=== PATIENT | female | born 1995 | race Caucasian/White ===

== ENCOUNTER 2017-01-29 17:53 | Observation (INO) | payer BC ==
[~2017-01-29] VITALS: Ht 154.9 cm; Wt 60.0 kg
[~2017-01-29 17:53] MED LIST: PREN1TAB62 PO
[2017-01-29 18:29] VITALS: BP 118/65
[2017-01-29 18:38] LABS: AMNI OBC PASS; AMNISURE NEGATIVE (NEGATIVE)
[2017-01-29 19:43] LABS: DAU SCREEN DISCLAIMER
[2017-01-29] MEDS ORDERED: NITROFURANTOIN (MACROBID) 100 MG CAPSULE PO ONE (22:00)
[2017-01-29] MEDS ORDERED: NITROFURANTOIN (MACROBID) 100 MG CAPSULE ONE (22:23)
[2017-01-29] MEDS ORDERED: NITR100C56 PO (23:23)
== END 2017-01-29 23:30 | disposition home or self-care (01) ==
LOC: LDOP 17:53 → LDIP 21:24
PROVIDERS: ADMIT Obstetrics & Gynecology; ATTEND Obstetrics & Gynecology
DX: O42.913 Preterm premature rupture of membranes, unspecified as to length of time between rupture and onset of labor, third trimester (principal); Z3A.33 33 weeks gestation of pregnancy
CPT/HCPCS: 36415; 59025; 76819; 80307; 81001; 84112; 84443; 85025; G0378; 99211; G0463

== ENCOUNTER 2017-02-19 21:59 | Outpatient (CLI) | payer BC ==
[~2017-02-19] VITALS: Ht 157.5 cm; Wt 61.8 kg
[~2017-02-19 21:59] MED LIST changes: +NITR100C56 PO
[2017-02-19] MEDS ORDERED: OXYTOCIN 30U/ 0.9% NaCL 500ML 500 ML IV PRN (23:52)
[2017-02-19] MEDS ORDERED: D5%-LACTATED RINGERS 1,000 ML IV SCH (23:52)
[2017-02-19] MEDS ORDERED: OXYTOCIN 30U/ 0.9% NaCL 500ML 500 ML IV ONE (23:52)
[2017-02-19] MEDS ORDERED: LACTATED RINGERS 1,000 ML IV SCH (23:52)
[2017-02-20] MEDS ORDERED: FENTANYL PF 100 MCG/2ML IV PRN
[2017-02-20] MEDS ORDERED: ONDANSETRON 2MG/ML, 2ML IVPush PRN
[2017-02-20] MEDS ORDERED: CALCIUM CARBONATE 500 MG TAB.CHEW PO PRN
[2017-02-20] MEDS ORDERED: MISOPROSTOL 25 MCG TABLET VG PRN
[2017-02-20] MEDS ORDERED: TERBUTALINE 1 MG/ML, 1ML IVPush PRN
[2017-02-20] MEDS ORDERED: FENTANYL PF 100 MCG/2ML IVPush PRN
== END 2017-02-19 23:25 | disposition home or self-care (01) ==
LOC: LDOP 21:59
PROVIDERS: ATTEND Obstetrics & Gynecology
DX: O42.913 Preterm premature rupture of membranes, unspecified as to length of time between rupture and onset of labor, third trimester (principal); Z3A.36 36 weeks gestation of pregnancy
CPT/HCPCS: 59025; 86850; 86900; 89060; 99211; G0463; Q0114

== ENCOUNTER 2017-02-27 20:33 | Observation (INO) | payer BC ==
[~2017-02-27] VITALS: Ht 157.5 cm; Wt 66.0 kg
[2017-02-27 21:15] LABS: AMNI OBC PASS; AMNISURE NEGATIVE (NEGATIVE)
[2017-02-27] MEDS ORDERED: DIPHENHYDRAMINE 25 MG CAPSULE ONE (22:56)
[2017-02-27] MEDS ORDERED: DIPHENHYDRAMINE 25 MG CAPSULE PO PRN (23:00)
== END 2017-02-28 00:55 | disposition home or self-care (01) ==
LOC: LDOP 20:33 → LDIP 22:54
PROVIDERS: ADMIT Obstetrics & Gynecology; ATTEND Obstetrics & Gynecology
DX: O42.92 Full-term premature rupture of membranes, unspecified as to length of time between rupture and onset of labor (principal); O62.9 Abnormality of forces of labor, unspecified; O26.893 Other specified pregnancy related conditions, third trimester; L29.9 Pruritus, unspecified; Z3A.37 37 weeks gestation of pregnancy
CPT/HCPCS: 36415; 59025; 76815; 80076; 82239; 84112; G0378; Q0163; 99211; G0463

== ENCOUNTER 2019-07-11 21:34 | Inpatient (IN) | payer BC ==
[~2019-07-11] VITALS: Ht 157.5 cm; Wt 62.3 kg
[~2019-07-11 21:34] MED LIST changes: +DOCU-131 PO; +IBUP-1223 PO
[2019-07-11] MEDS ORDERED: OXYTOCIN 30U/ 0.9% NaCL 500ML 500 ML IV ONE (21:36)
[2019-07-11] MEDS ORDERED: D5%-LACTATED RINGERS 1,000 ML IV SCH (21:36)
[2019-07-11 21:57] LABS: BASOPHILS # (AUTO) 0.04 x10^3/uL (0-0.1); BASOPHILS % (AUTO) 0 % (0-1); EOSINOPHILS # (AUTO) 0.16 x10^3/uL (0-0.4); EOSINOPHILS % (AUTO) 2 % (1-7); LYMPHOCYTES % (AUTO) 18 % (22-44); MD NO; MEAN CORPUSCULAR HEMOGLOBIN 33.7 pg (27.0-34.8); MEAN CORPUSCULAR HGB CONC 33.4 g/dL (32.4-35.8); MEAN CORPUSCULAR VOLUME 100.8 fL (80-100); MEAN PLATELET VOLUME 7.9 fL (7.4-10.4); MONOCYTES # (AUTO) 0.68 x10^3/uL (0.2-0.8); MONOCYTES % (AUTO) 7 % (2-9); NEUTROPHILS # (AUTO) 7.75 x10^3/uL (1.8-6.8); NEUTROPHILS % (AUTO) 74 % (42-75); PLATELET COUNT 268 x10^3/uL (130-400); RED BLOOD COUNT 3.77 x10^6/uL (3.82-5.3); RED CELL DISTRIBUTION WIDTH 13.1 % (9.6-15.2)
[2019-07-11] MEDS ORDERED: TERBUTALINE 1 MG/ML, 1ML IVPush PRN (22:00)
[2019-07-11] MEDS ORDERED: FENTANYL PF 100 MCG/2ML IV PRN (22:00)
[2019-07-11] MEDS ORDERED: FENTANYL PF 100 MCG/2ML IVPush PRN (22:00)
[2019-07-11] MEDS ORDERED: ONDANSETRON 2MG/ML, 2ML IVPush PRN (22:00)
[2019-07-11] MEDS ORDERED: TERBUTALINE 1 MG/ML, 1ML SQ PRN (22:00)
[2019-07-11] MEDS ORDERED: OXYTOCIN 30U/ 0.9% NaCL 500ML 500 ML ONE (22:09)
[2019-07-11] MEDS ORDERED: LIDOCAINE 1%, 20ML ONE (22:09)
[2019-07-11] MEDS ORDERED: MISOPROSTOL 200 MCG TABLET ONE (22:09)
[2019-07-11] MEDS ORDERED: NEWBORN KIT ONE (22:09)
[2019-07-11] MEDS ORDERED: FENTANYL PF 100 MCG/2ML ONE ×2 (22:24→23:21)
[2019-07-11] MEDS ORDERED: SIMETHICONE 80 MG CHEW TAB PO PRN (22:30)
[2019-07-11] MEDS ORDERED: OXYcodone/APAP 5/325MG TABLET PO PRN (22:30)
[2019-07-11] MEDS ORDERED: DIPH,PERTUSS(ACELL),TET VAC/PF NC IM-VACC PRN (22:30)
[2019-07-11] MEDS ORDERED: METOCLOPRAMIDE 5 MG/ML, 2ML IV PRN (22:30)
[2019-07-11] MEDS ORDERED: BISACODYL 10 MG SUPP PR PRN (22:30)
[2019-07-11] MEDS ORDERED: MAGNESIUM HYDROXIDE 8%, 30ML UDC PO PRN (22:30)
[2019-07-11] MEDS ORDERED: ONDANSETRON 2MG/ML, 2ML IV PRN (22:30)
[2019-07-11] MEDS ORDERED: MISOPROSTOL 200 MCG TABLET PR PRN (22:30)
[2019-07-11] MEDS ORDERED: DOCUSATE 100 MG CAPSULE PO PRN (22:30)
[2019-07-11] MEDS ORDERED: ACETAMINOPHEN 325 MG TABLET PO PRN ×2 (22:30)
[2019-07-12] MEDS: LACTATED RINGERS 1,000 ML IV SCH ×2 (00:09→00:10)
[2019-07-12] MEDS ORDERED: IBUPROFEN 600 MG TABLET ONE (00:43)
[2019-07-12] MEDS: IBUPROFEN 600 MG TABLET PO PRN ×3 (00:45→17:46)
[2019-07-12] MEDS ORDERED: OXYTOCIN 30U/ 0.9% NaCL 500ML 500 ML ONE (01:39)
[2019-07-12] MEDS: OXYTOCIN 30U/ 0.9% NaCL 500ML 500 ML IV SCH ×3 (01:41→18:14)
[2019-07-12 02:45] VITALS: BP 99/58
[2019-07-12] MEDS: OXYcodone/APAP 5/325MG TABLET PO PRN ×2 (03:41→17:47)
[2019-07-12 07:40] VITALS: BP 94/59
[2019-07-12] MEDS ORDERED: PRENATAL VIT/IRON/FA 1 EACH TABLET PO SCH (09:00)
[2019-07-12 09:06] LABS: BASOPHILS # (AUTO) 0.05 x10^3/uL (0-0.1); BASOPHILS % (AUTO) 0 % (0-1); EOSINOPHILS # (AUTO) 0.19 x10^3/uL (0-0.4); EOSINOPHILS % (AUTO) 1 % (1-7); LYMPHOCYTES # (AUTO) 1.71 x10^3/uL (1-3.4); LYMPHOCYTES % (AUTO) 12 % (22-44); MD SCAN; MEAN CORPUSCULAR HEMOGLOBIN 33.8 pg (27.0-34.8); MEAN CORPUSCULAR HGB CONC 33.4 g/dL (32.4-35.8); MEAN CORPUSCULAR VOLUME 101.1 fL (80-100); MEAN PLATELET VOLUME 7.9 fL (7.4-10.4); MONOCYTES # (AUTO) 0.91 x10^3/uL (0.2-0.8); MONOCYTES % (AUTO) 7 % (2-9); NEUTROPHILS # (AUTO) 11.23 x10^3/uL (1.8-6.8); NEUTROPHILS % (AUTO) 80 % (42-75); PLATELET COUNT 247 x10^3/uL (130-400); RED BLOOD COUNT 3.82 x10^6/uL (3.82-5.3); RED CELL DISTRIBUTION WIDTH 12.9 % (9.6-15.2)
[2019-07-12 12:51] VITALS: BP 101/65
[2019-07-12 20:00] VITALS: BP 116/80
[2019-07-13] MEDS: OXYTOCIN 30U/ 0.9% NaCL 500ML 500 ML IV SCH (04:14)
[2019-07-13 08:50] VITALS: BP 93/59
== END 2019-07-13 12:40 | disposition home or self-care (01) | DRG 807 ==
LOC: LDOP 21:34 → LDIP 21:41 → 2NW 07-12 02:37
PROVIDERS: ADMIT Obstetrics & Gynecology; ATTEND Obstetrics & Gynecology
PROC: 10E0XZZ Delivery of Products of Conception, External Approach (ICD-10-PCS; principal; 2019-07-12)
PROC: 10907ZC Drainage of Amniotic Fluid, Therapeutic from Products of Conception, Via Natural or Artificial Opening (ICD-10-PCS; 2019-07-12)
DX: O80 Encounter for full-term uncomplicated delivery (principal); Z37.0 Single live birth; Z3A.38 38 weeks gestation of pregnancy
CPT/HCPCS: 36415; 85025; 86850; 86900; G0378; J3010; J2590; J7120

== ENCOUNTER 2021-03-16 11:24 | Emergency (ER) | payer BC, OTHER ==
[~2021-03-16] VITALS: Ht 157.5 cm; Wt 48.1 kg
--- NOTE | 2021-03-16 11:33 | NUR ---
PT AMBULATORY TO ROOM 16 W/ C/O L SIDE HEAD PAIN STARTED 4 DAYS AGO. PT STATES SHE WENT TO [facility] YESTERDAY AND HAD IMAGING DONE AND EVERYTHING CAME BACK NEGATIVE. NEURO INTACT. PT RESTING ON GURNEY. AIKEN.
[2021-03-16] MEDS ORDERED: IBUPROFEN 600 MG TABLET PO ONE (12:00)
[2021-03-16 12:13] LABS: BASOPHILS % (AUTO) 1 % (0-1); EOSINOPHILS % (AUTO) 2 % (1-7); LYMPHOCYTES % (AUTO) 25 % (22-44); MEAN CORPUSCULAR HEMOGLOBIN 31.9 pg (27.0-34.8); MEAN CORPUSCULAR HGB CONC 34.4 g/dL (32.4-35.8); MEAN PLATELET VOLUME 7.6 fL (7.4-10.4); MONOCYTES % (AUTO) 6 % (2-9); NEUTROPHILS % (AUTO) 67 % (42-75); PLATELET COUNT 244 x10^3/uL (130-400); RED BLOOD COUNT 3.99 x10^6/uL (3.82-5.3); RED CELL DISTRIBUTION WIDTH 12.6 % (9.6-15.2)
[2021-03-16] MEDS ORDERED: IBUPROFEN 600 MG TABLET ONE (12:15)
--- NOTE | 2021-03-16 12:18 | NUR ---
PT RESTING ON GURNEY. NADN. CALDERON.
[2021-03-16 12:35] LABS: ANION GAP 6 mmol/L (5-15); CALCIUM 8.6 mg/dL (8.5-10.1); CHLORIDE 109 mmol/L (98-107); CREATININE 0.63 mg/dL (0.55-1.02)
[2021-03-16 13:00] VITALS: BP 95/61
--- NOTE | 2021-03-16 13:01 | NUR ---
PT RESTING ON ESTELA. ATTILA. VSS. ERP DR. MUELLER AT BEDSIDE FOR RE-EVAL.
== END 2021-03-16 13:20 | disposition home or self-care (01) ==
LOC: ED 13:10
DX: R51.9 Headache, unspecified (principal); H92.02 Otalgia, left ear
CPT/HCPCS: 36415; 80048; 85025; 99283

== ENCOUNTER 2021-03-21 10:12 | Emergency (ER) | payer OTHER ==
[~2021-03-21] VITALS: Ht 160 cm; Wt 48.1 kg
[2021-03-21] MEDS ORDERED: SODIUM CHLORIDE 0.9% 1,000ML IVBOLUS ONE (11:30)
[2021-03-21] MEDS ORDERED: DIPHENHYDRAMINE 50 MG/ML, 1ML IVPush ONE (11:30)
[2021-03-21] MEDS ORDERED: METOCLOPRAMIDE 5 MG/ML, 2ML IVPush ONE (11:30)
[2021-03-21] MEDS ORDERED: DIPHENHYDRAMINE 50 MG/ML, 1ML ONE (11:33)
[2021-03-21] MEDS ORDERED: METOCLOPRAMIDE 5 MG/ML, 2ML ONE (11:34)
--- NOTE | 2021-03-21 11:55 | NUR ---
PT MEDICATED FOR 6/10 SERRANO WITH NAUSEA. VS UPDATED IN COMPUTER. CALL LIGHT WITHIN REACH.
[2021-03-21 12:22] LABS: BASOPHILS % (AUTO) 0 % (0-1); EOSINOPHILS % (AUTO) 0 % (1-7); LYMPHOCYTES % (AUTO) 8 % (22-44); MEAN CORPUSCULAR HEMOGLOBIN 32.2 pg (27.0-34.8); MEAN CORPUSCULAR HGB CONC 34.7 g/dL (32.4-35.8); MEAN PLATELET VOLUME 7.7 fL (7.4-10.4); MONOCYTES % (AUTO) 6 % (2-9); NEUTROPHILS % (AUTO) 85 % (42-75); PLATELET COUNT 229 x10^3/uL (130-400); RED BLOOD COUNT 4.54 x10^6/uL (3.82-5.3); RED CELL DISTRIBUTION WIDTH 12.7 % (9.6-15.2)
[2021-03-21 12:31] LABS: ALANINE AMINOTRANSFERASE 36 U/L (12-78); ALBUMIN 4.3 g/dL (3.4-5.0); ANION GAP 7 mmol/L (5-15); CALCIUM 9.2 mg/dL (8.5-10.1); CHLORIDE 105 mmol/L (98-107)
[2021-03-21 12:36] LABS: ALKALINE PHOSPHATASE 81 U/L (45-117); BILIRUBIN,TOTAL 1.9 mg/dL (0.2-1.0); CREATININE 0.59 mg/dL (0.55-1.02); TOTAL PROTEIN 8.5 g/dL (6.4-8.2)
--- NOTE | 2021-03-21 13:08 | NUR ---
URINE COLLECTED/WALKED TO LAB.
[2021-03-21 13:23] LABS: MICROSCOPIC AUTO
[2021-03-21 13:24] VITALS: BP 105/60
[2021-03-21] MEDS ORDERED: KETOROLAC 30 MG/1 ML ONE (13:33)
--- NOTE | 2021-03-21 13:36 | NUR ---
PT MEDICATED PER ERP ORDER FOR 1/10 SERRANO PAIN.
[2021-03-21] MEDS ORDERED: KETOROLAC 30 MG/1 ML IVPush ONE (14:00)
[2021-03-21] MEDS ORDERED: KETOROLAC 15 MG/1ML IVPush ONE (14:30)
== END 2021-03-21 14:26 | disposition home or self-care (01) ==
LOC: ED 10:23
DX: L73.9 Follicular disorder, unspecified (principal); R51.9 Headache, unspecified; R11.2 Nausea with vomiting, unspecified; R42 Dizziness and giddiness
CPT/HCPCS: 36415; 70450; 80053; 81001; 84703; 85025; 96374; 96375; 99284; J1200; J1885; J2765; J7030